=== PATIENT | female | born 1960 | race African-American/Black ===

== ENCOUNTER 2016-11-11 04:06 | Emergency (ER) | payer SELFPAY ==
[2016-11-11] MEDS ORDERED: ASPIRIN 81 MG TABLET, CHEWABLE PO ONE (04:17)
--- NOTE | 2016-11-11 04:35 | ER Document Report ---
ED General - General Mode of Arrival: Ambulatory Information source: Patient TRAVEL OUTSIDE OF THE [place] IN LAST 30 DAYS: No - HPI Onset: Just prior to arrival Onset/Duration: Sudden <HOMERO KWAN - Last Filed: 11/11/16 05:26> <DESTINEE HUBBARD - Last Filed: 11/11/16 07:58> <DEMONDSUMMER - Last Filed: 12/05/16 11:03> - General Chief Complaint: Shortness Of Breath Stated Complaint: CHEST PAIN Notes: Patient is a 56-year-old female that presents to the emergency department today with complaints of upper quadrant abdominal pain/chest pain. Patient states that her symptoms began just prior to arrival, it woke her up from sleep. Patient states that she felt like she could not catch her breath, she had upper abdominal pressure, with radiation of the pain to the center of her back. Patient also mentions chest pain as well. Patient states she had a normal bowel movement yesterday. Patient states she vomited and had associated diaphoresis with her symptoms. Patient denies any diarrhea, recent travel, history of blood clots, or recent surgeries. (HOMERO KWAN) - Related Data Allergies/Adverse Reactions: aspirin Allergy (Verified 11/11/16 04:17) Penicillins Allergy (Verified 11/11/16 04:17) Past Medical History - General Information source: Patient - Social History Smoking Status: Never Smoker Cigarette use (# per day): No Frequency of alcohol use: None Drug Abuse: None Lives with: Family Family History: Reviewed & Not Pertinent Patient has suicidal ideation: No Patient has homicidal ideation: No - Medical History Medical History: Negative Past Surgical History: Reports: Hx Tonsillectomy <HOMERO KWAN - Last Filed: 11/11/16 05:26> Review of Systems - Review of Systems Constitutional: See HPI, Diaphoresis EENT: No symptoms reported Cardiovascular: See HPI, Chest pain Respiratory: No symptoms reported Gastrointestinal: See HPI, Abdominal pain, Vomiting. denies: Diarrhea Genitourinary: No symptoms reported Female Genitourinary: No symptoms reported Musculoskeletal: No symptoms reported Skin: No symptoms reported Hematologic/Lymphatic: No symptoms reported Neurological/Psychological: No symptoms reported -: Yes All other systems reviewed and negative <HOMERO KWAN - Last Filed: 11/11/16 05:26> Physical Exam <HOMERO KWAN - Last Filed: 11/11/16 05:26> <DESTINEE HUBBARD - Last Filed: 11/11/16 07:58> <SUMMER LAGOS - Last Filed: 12/05/16 11:03> - Vital signs Vitals: Temp Pulse Resp BP Pulse Ox 97.9 F 82 24 H 160/97 H 100 11/11/16 04:14 11/11/16 04:14 11/11/16 04:14 11/11/16 04:14 11/11/16 04:14 - Notes Notes: Physical Exam: General: Alert, appears uncomfortable, crouched over at bedside. HEENT: Normocephalic. Atraumatic. PERRL. Extraocular movements intact. Oropharynx clear. Neck: Supple. Non-tender. Respiratory: No respiratory distress. Clear and equal breath sounds bilaterally. Cardiovascular: Regular rate and rhythm. Abdominal: Obese. Right upper quadrant and epigastric tenderness to palpation. No distension. Normal Bowel Sounds. Back: Non-tender. No deformity or step off. Extremities: Moves all four extremities. Upper extremities: Normal inspection. Normal ROM. Lower extremities: Normal inspection. No edema. Normal ROM. Neurological: Normal cognition. AAOx4. Normal speech. Psychological: Normal affect. Normal Mood. Skin: Warm. Dry. Normal color. (HOMERO KWAN) Course - Laboratory Result Diagrams: 11/11/16 04:50 11/11/16 04:50 <HOMERO KWAN - Last Filed: 11/11/16 05:26> - Laboratory Result Diagrams: 11/11/16 04:50 11/11/16 04:50 - Diagnostic Test Radiology reviewed: Image reviewed, Reports reviewed - Ultrasound shows cholelithiasis without cholecystitis. Acute abdominal series shows considerable stool in the colon. <DESTINEE HUBBARD - Last Filed: 11/11/16 07:58> - Laboratory Result Diagrams: 11/11/16 04:50 11/11/16 04:50 <SUMMER LAGOS - Last Filed: 12/05/16 11:03> - Re-evaluation Re-evalutation: 11/11/16 07:58 At this time the patient is pain free. Ultrasound and x-ray results were reviewed with the patient. She will be sent home with [place] dispense pack for this morning if needed, and a prescription for the same. She is advised to follow-up with [facility] in the next few days. She is advised to return if any change in her symptoms. (DESTINEE HUBBARD) 11/11/16 04:37 Patient presents emergency Department chief plain abdominal back pain. She says she felt fine when she went to bed last night she woke up around 3:00 this morning with pressure fullness in her upper chest radiating between her shoulder blades she then vomited and feels like she has to vomit at the bedside she is squatted over on the side of the bed holding the top of her stomach. She denies any chest pain or pressure she says she does not feel short of breath she is tachypneic. She has no known gallbladder problems that she is aware of in the past. She does not have a primary care physician and hasn't seen a doctor in 2 years. She denies any fevers chills earache sore throat is not exertional in nature. She denies any jaw neck pain. Denies any history of back pain as well. On physical examination her blood pressure slightly elevated she is afebrile non-tachycardic with an increased respiratory rate. She has clear lungs bilaterally EKG is reviewed. She has pain with palpation of the epigastrium and right upper quadrant with no guarding rebound rigidity pulsatile abdominal masses or hernias. An order a GI cocktail Zofran laboratory evaluation including cardiac GI lipase and liver enzymes. 11/11/16 05:37 Patient reassessed at bedside mild relief with GI cocktail resolution of her nausea with Zofran. Clinical and give her doses of morphine. Mildly elevated liver enzymes no white count elevation. i am going to order a gallbladder ultrasound 11/11/16 05:53 Care signed out to Dr. Hubbard at 0 [phone] pending gallbladder ultrasound further evaluation and disposition (SUMMER LAGOS) - Vital Signs Vital signs: Temp Pulse Resp BP Pulse Ox 97.3 F 67 16 127/80 H 100 11/11/16 08:16 11/11/16 08:16 11/11/16 08:16 11/11/16 08:16 11/11/16 08:16 - Laboratory Laboratory results interpreted by me: 11/11/16 11/11/16 11/11/16 04:50 04:50 05:10 WBC 3.5 L Glucose 111 H Direct Bilirubin 0.6 H AST 85 H ALT 67 H Urine Blood SMALL H - EKG Interpretation by Me Additional EKG results interpreted by me: 11/11/16 04:38 EKG interpreted by myself to reveal sinus rhythm at [address] segment elevation or depression (SUMMER LAGOS) Discharge <HOMERO KWAN - Last Filed: 11/11/16 05:26> <DESTINEE HUBBARD - Last Filed: 11/11/16 07:58> <SUMMER LAGOS - Last Filed: 12/05/16 11:03> - Discharge Clinical Impression: Cholelithiasis without cholecystitis Condition: Stable Disposition: HOME, SELF-CARE Additional Instructions: Gallbladder Disease: Your evaluation shows evidence of gallbladder disease. The gallbladder is a pouch under the liver which stores bile. Stones, infection, or irritation of the gallbladder cause attacks of pain. Certain foods -- fats in particular -- may provoke attacks. The usual treatment for gallbladder disease is surgical removal of the gallbladder -- called a cholecystectomy. You will be referred to a physician qualified to advise you on the best treatment for your problem. Hospitalization is not necessary. Take clear liquids only until you are painfree. After that, you should stay on a low-fat diet, with frequent SMALL meals. Call the doctor or return at once if you develop severe pain, repeated vomiting, fever, or jaundice (a yellow color in the skin and whites of the eyes) . TAKE THE PAIN MEDICATION IF NEEDED. TAKE STOOL SOFTENERS TO PREVENT CONSTIPATION. DRINK PLENTY OF FLUIDS. FOLLOW UP WITH [facility] NEXT WEEK--CALL TODAY TO SCHEDULE AN APPOINTMENT. RETURN TO THE EMERGENCY ROOM IF ANY NEW OR WORSENING SYMPTOMS. Prescriptions: Hydrocodone/Acetaminophen [Hydrocodon-Acetaminophen 5-325] 1 each PO Q4 PRN #15 tablet PRN Reason: Forms: Return to Work Referrals: [facility] [Provider Group] - Follow up in 3-5 days (CALL TODAY TO SCHEDULE AN APPOINTMENT.) Scribe Documentation - Scribe Written by Maye:: Maye Mendez, [id number] 11/11/2016 acting as scribe for :: Demond <HOMERO KWAN - Last Filed: 11/11/16 05:26>
[2016-11-11] MEDS ORDERED: METOCLOPRAMIDE HCL ORAL SOLN 10 MG/10 ML UDCUP PO ONE (04:37)
[2016-11-11] MEDS ORDERED: ONDANSETRON 4 MG TAB.RAPDIS PO ONE (04:37)
[2016-11-11] MEDS ORDERED: LIDOCAINE 2% VISCOUS SOLN 20 ML UDCUP PO ONE (04:37)
[2016-11-11] MEDS ORDERED: MAG HYDROX/AL HYDROX/SIMETH SUSP 30 ML UDCUP PO ONE (04:37)
[2016-11-11 05:06] LABS: ABSOLUTE EOSINOPHILS # (AUTO) 0.1 10^3/uL (0.0-0.6); ABSOLUTE LYMPHOCYTES (AUTO) 1.1 10^3/uL (0.5-4.7); ABSOLUTE MONOCYTES (AUTO) 0.3 10^3/uL (0.1-1.4); BASOPHILS % (AUTO) 0.9 % (0-2); EOSINOPHILS % (AUTO) 1.8 % (0-6); HEMATOCRIT 44.7 % (36.0-47.0); HEMOGLOBIN 14.7 g/dL (12.0-15.5); HGB HCT DIFFERENCE -0.6; LYMPHOCYTES % (AUTO) 29.8 % (13-45); MEAN CORPUSCULAR HEMOGLOBIN 28.3 pg (27.0-33.4); MEAN CORPUSCULAR VOLUME 86 fl (80-97); MONOCYTES % (AUTO) 9.7 % (3-13); RED BLOOD COUNT 5.21 10^6/uL (3.72-5.28); RED CELL DISTRIBUTION WIDTH 13.5 % (11.5-14.0); SEGMENTED NEUTROPHILS % (AUTO) 57.8 % (42-78); WHITE BLOOD COUNT 3.5 10^3/uL (4.0-10.5)
[2016-11-11 05:18] LABS: ALANINE AMINOTRANSFERASE 67 U/L (9-52); ALBUMIN 4.1 g/dL (3.5-5.0); ALKALINE PHOSPHATASE 81 U/L (38-126); ANION GAP 13 (5-19); ASPARTATE AMINO TRANSFERASE 85 U/L (14-36); BILIRUBIN,DIRECT 0.6 mg/dL (0.0-0.4); BILIRUBIN,TOTAL 0.8 mg/dL (0.2-1.3); BLOOD UREA NITROGEN 17 mg/dL (7-20); CALCIUM 9.7 mg/dL (8.4-10.2); CARBON DIOXIDE 26 mmol/L (22-30); CHLORIDE 106 mmol/L (98-107); CREATININE RESULT 0.93 mg/dL (0.52-1.25); GLUCOSE 111 mg/dL (75-110); LIPASE 122.2 U/L (23-300); POTASSIUM 4.1 mmol/L (3.6-5.0); TOTAL PROTEIN 7.8 g/dL (6.3-8.2)
[2016-11-11 05:27] LABS: APPEARANCE,URINE CLEAR; BILIRUBIN,URINE NEGATIVE (NEGATIVE); GLUCOSE, URINE NEGATIVE (NEGATIVE); KETONES,URINE NEGATIVE (NEGATIVE); LEUKOCYTE ESTERASE,URINE NEGATIVE (NEGATIVE); NITRITE,URINE NEGATIVE (NEGATIVE); PROTEIN,URINE NEGATIVE (NEGATIVE); UROBILINOGEN,URINE NEGATIVE mg/dL (<2.0)
[2016-11-11 05:30] LABS: TROPONIN I < 0.012 ng/mL
[2016-11-11] MEDS ORDERED: MORPHINE SULFATE 10 MG/ML INJ IV ONE (05:37)
[2016-11-11] MEDS ORDERED: HYDROCODONE/ACETAMINOPHEN 5-325 MG 6 TAB/DSPK PO PRN (07:59)
[2016-11-11 08:43] VITALS: BP 127/80
--- NOTE | 2016-11-12 07:43 | EKG REPORT ---
SEVERITY:- BORDERLINE ECG - SINUS RHYTHM BORDERLINE T ABNORMALITIES, ANT-LAT LEADS : Confirmed by: Jose Alfredo Celestin MD 12-Nov-2016 07:43:06
== END 2016-11-11 08:16 | disposition home or self-care (01) ==
LOC: ER 04:06
DX: K80.20 Calculus of gallbladder without cholecystitis without obstruction (principal); R11.2 Nausea with vomiting, unspecified; R06.02 Shortness of breath; R07.9 Chest pain, unspecified; R61 Generalized hyperhidrosis; Z88.6 Allergy status to analgesic agent; Z88.0 Allergy status to penicillin
CPT/HCPCS: 93005; 99285; 96374; 36415; 83690; 85025; 80053; 81001; 84484; 83880; 74022; 76700; 93010; S0119; J3490; J2270

== ENCOUNTER → 2017-03-06 | Outpatient (CLI) | payer OTHER ==
[2017-03-06 09:14] LABS: ALANINE AMINOTRANSFERASE 46 U/L (9-52); ALBUMIN 4.3 g/dL (3.5-5.0); ALKALINE PHOSPHATASE 78 U/L (38-126); ANION GAP 10 (5-19); ASPARTATE AMINO TRANSFERASE 44 U/L (14-36); BILIRUBIN,DIRECT 0.4 mg/dL (0.0-0.4); BILIRUBIN,TOTAL 0.5 mg/dL (0.2-1.3); BLOOD UREA NITROGEN 18 mg/dL (7-20); CALCIUM 9.7 mg/dL (8.4-10.2); CARBON DIOXIDE 28 mmol/L (22-30); CHLORIDE 106 mmol/L (98-107); CHOLESTEROL 255.79 mg/dL (0-200); CREATININE RESULT 1.01 mg/dL (0.52-1.25); Direct HDL 50 mg/dL (>40); GLUCOSE 96 mg/dL (75-110); POTASSIUM 4.5 mmol/L (3.6-5.0); SODIUM 143.7 mmol/L (137-145); TOTAL PROTEIN 7.3 g/dL (6.3-8.2); TRIGLYCERIDES 141 mg/dL (<150)
[2017-03-06 09:25] LABS: DIRECT LDL 166 mg/dL (<100)
== END ==
LOC: CCC 07:29
DX: E66.9 Obesity, unspecified (principal)
CPT/HCPCS: 36415; 80053; 80061; 83036; 84443